=== PATIENT | male | born 1960 | race Caucasian/White ===

== ENCOUNTER 2024-05-08 13:26 | Outpatient (CLI) | payer OTHER | END 2024-05-08 13:27 | disposition home or self-care (01) | LOC: CSHWCC 13:26 | PROVIDERS: ATTEND Nurse Practitioner Family | DX: L89.893 Pressure ulcer of other site, stage 3 (principal); I87.311 Chronic venous hypertension (idiopathic) with ulcer of right lower extremity; L97.212 Non-pressure chronic ulcer of right calf with fat layer exposed; Z72.0 Tobacco use; Z89.512 Acquired absence of left leg below knee ==

== ENCOUNTER 2024-05-18 11:17 | Outpatient (CLI) | payer OTHER | END 2024-05-18 11:18 | disposition home or self-care (01) | LOC: CSHWCC 11:17 | PROVIDERS: ATTEND Nurse Practitioner Family | DX: L89.893 Pressure ulcer of other site, stage 3 (principal); I87.311 Chronic venous hypertension (idiopathic) with ulcer of right lower extremity; L97.212 Non-pressure chronic ulcer of right calf with fat layer exposed; Z72.0 Tobacco use; Z89.512 Acquired absence of left leg below knee | CPT/HCPCS: 11042; 11045 ==

== ENCOUNTER 2024-05-22 14:39 | Outpatient (CLI) | payer OTHER | END 2024-05-22 14:40 | disposition home or self-care (01) | LOC: CSHWCC 14:39 | PROVIDERS: ATTEND Nurse Practitioner Family | DX: L89.893 Pressure ulcer of other site, stage 3 (principal); I87.311 Chronic venous hypertension (idiopathic) with ulcer of right lower extremity; L97.212 Non-pressure chronic ulcer of right calf with fat layer exposed; Z89.512 Acquired absence of left leg below knee; Z72.0 Tobacco use | CPT/HCPCS: 11042; 11045; 87070; 87205 ==

== ENCOUNTER 2024-05-29 11:03 | Outpatient (CLI) | payer OTHER | END 2024-05-29 11:04 | disposition home or self-care (01) | LOC: CSHWCC 11:03 | PROVIDERS: ATTEND Nurse Practitioner Family | DX: L89.893 Pressure ulcer of other site, stage 3 (principal); I87.311 Chronic venous hypertension (idiopathic) with ulcer of right lower extremity; L97.212 Non-pressure chronic ulcer of right calf with fat layer exposed; Z89.512 Acquired absence of left leg below knee; Z72.0 Tobacco use | CPT/HCPCS: 11042; 11045 ==

== ENCOUNTER 2024-06-05 08:46 | Outpatient (CLI) | payer OTHER | END 2024-06-05 08:47 | disposition home or self-care (01) | LOC: CSHWCC 08:46 | PROVIDERS: ATTEND Nurse Practitioner Family | DX: L89.893 Pressure ulcer of other site, stage 3 (principal); I87.311 Chronic venous hypertension (idiopathic) with ulcer of right lower extremity; L97.212 Non-pressure chronic ulcer of right calf with fat layer exposed; Z89.512 Acquired absence of left leg below knee; Z72.0 Tobacco use | CPT/HCPCS: 11042; 11045 ==

== ENCOUNTER 2024-07-17 13:13 | Outpatient (CLI) | payer OTHER | END 2024-07-17 13:14 | disposition home or self-care (01) | LOC: CSHWCC 13:13 | PROVIDERS: ATTEND Nurse Practitioner Family | DX: L89.893 Pressure ulcer of other site, stage 3 (principal); I87.311 Chronic venous hypertension (idiopathic) with ulcer of right lower extremity; L97.212 Non-pressure chronic ulcer of right calf with fat layer exposed; Z89.512 Acquired absence of left leg below knee; Z72.0 Tobacco use | CPT/HCPCS: 11042; 11045; 87070; 87205 ==

== ENCOUNTER 2024-07-31 12:32 | Outpatient (CLI) | payer OTHER | END 2024-07-31 12:33 | disposition home or self-care (01) | LOC: CSHWCC 12:32 | PROVIDERS: ATTEND Nurse Practitioner Family | DX: I87.311 Chronic venous hypertension (idiopathic) with ulcer of right lower extremity (principal); L97.212 Non-pressure chronic ulcer of right calf with fat layer exposed; L89.893 Pressure ulcer of other site, stage 3; Z72.0 Tobacco use; Z89.512 Acquired absence of left leg below knee | CPT/HCPCS: 11042; 11045 ==

== ENCOUNTER 2024-08-07 12:41 | Outpatient (CLI) | payer OTHER | END 2024-08-07 12:42 | disposition home or self-care (01) | LOC: CSHWCC 12:41 | PROVIDERS: ATTEND Nurse Practitioner Family | DX: L89.893 Pressure ulcer of other site, stage 3 (principal); I87.311 Chronic venous hypertension (idiopathic) with ulcer of right lower extremity; L97.212 Non-pressure chronic ulcer of right calf with fat layer exposed; Z72.0 Tobacco use; Z89.512 Acquired absence of left leg below knee | CPT/HCPCS: 11042; 11045 ==

== ENCOUNTER 2024-10-18 13:37 | Outpatient (CLI) | payer OTHER | END 2024-10-18 13:38 | disposition home or self-care (01) | LOC: CSHWCC 13:37 | PROVIDERS: ATTEND Nurse Practitioner Family | DX: I87.311 Chronic venous hypertension (idiopathic) with ulcer of right lower extremity (principal); L97.112 Non-pressure chronic ulcer of right thigh with fat layer exposed; Z89.512 Acquired absence of left leg below knee; Z72.0 Tobacco use | CPT/HCPCS: 11042; 99213; G0463 ==

== ENCOUNTER 2024-11-06 13:29 | Outpatient (CLI) | payer OTHER | END 2024-11-06 13:30 | disposition home or self-care (01) | LOC: CSHWCC 13:29 | PROVIDERS: ATTEND Nurse Practitioner Family | DX: I87.311 Chronic venous hypertension (idiopathic) with ulcer of right lower extremity (principal); L97.112 Non-pressure chronic ulcer of right thigh with fat layer exposed; Z89.512 Acquired absence of left leg below knee; Z72.0 Tobacco use | CPT/HCPCS: 99212; G0463 ==